=== PATIENT | female | born 1975 | race Caucasian/White ===

== ENCOUNTER 2022-08-14 21:02 | Inpatient (IN) ==
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
[2022-08-14 21:36] LABS: Pregnancy Test, Urine Negative (Negative)
[2022-08-14 21:38] LABS: Appearance Urine Cloudy (Clear); Bacteria Urine Automated Negative (Negative); Bilirubin Urine Negative (Negative); Blood Urine Negative (Negative); Cast Urine Automated 0 /lpf (0-5); Color Urine Yellow; Epithelial Cell Urine Auto >30 /lpf (0-5); Glucose Urine UA Negative (Negative); Ketones Urine Negative (Negative); Leukocyte Esterase Urine Negative (Negative); Nitrite Urine Negative (Negative); Protein Urine Negative (Negative); RBC Urine Automated 0-4 /hpf (0-4); Specific Gravity Urine 1.014 (1.000-1.030); Urobilinogen Urine Negative (Negative)
[2022-08-14 21:45] LABS: Basophils # (auto) 0.07 K/uL (0-0.2); Basophils % (auto) 0.7 %; Eosinophils # (auto) 0.11 K/uL (0-0.50); Hemoglobin 13.8 g/dl (12.0-16.0); Immature Granulocytes # (auto) 0.03 K/uL (0.00-0.02); Immature Granulocytes % (auto) 0.3 %; Lymphocytes # (auto) 2.15 K/uL (1.2-3.4); Lymphocytes % (auto) 20.4 %; Mean Corpuscular Hgb Conc 33.7 g/dL (32.0-36.0); Mean Corpuscular Volume 89.1 fL (80.0-100.0); Mean Platelet Volume 9.2 fL (9.4-12.3); Monocytes # (auto) 0.53 K/uL (0.24-0.82); Neutrophils # (auto) 7.64 K/uL (1.4-6.5); Neutrophils % (auto) 72.6 %; Platelet Count 342 K/uL (130-400); RDW Coefficient of Variation 13.9 % (11.5-14.5); RDW Standard Deviation 45.7 fL (36.4-46.3); White Blood Count 10.53 K/ul (4.8-10.8)
[2022-08-14 22:06] LABS: Albumin Globulin Ratio 1.5 (0.9-2); Albumin Level 4.3 gm/dl (3.4-5.0); BUN Creatinine Ratio 15.7 (10-20); Bilirubin,Total 0.5 mg/dl (0.2-1.0); Calcium 9.3 mg/dl (8.5-10.1); Creatinine Clr Calc Pharmacy 111.9 ml/min; Est GFR (Non-African American) 84.6 ml/min; Globulin 2.9 gm/dl (2.5-4.0); Potassium 4.1 mmol/L (3.5-5.1); Total Protein 7.2 gm/dl (6.0-8.3)
[2022-08-14 22:08] LABS: Acetaminophen < 3 ug/ml (10-30); Salicylate < 3.0 mg/dl (3.0-30)
[2022-08-14 22:15] LABS: Amphetamines+Metham, Urine Neg (Neg); Barbiturates, Urine Neg (Neg); Benzodiazepine, Urine Neg (Neg); Cocaine, Urine Neg (Neg); MDMA (Ecstacy), Urine Pos (Neg); Methadone, Urine Neg (Neg); Opiate, Urine Neg (Neg); Phencyclidine, Urine Neg (Neg)
[2022-08-14] MEDS ORDERED: ACETAMINOPHEN 500 MG TAB PO STA (22:31)
[2022-08-14] MEDS ORDERED: MELOXICAM 7.5 MG TAB PO SCH (22:45)
[2022-08-14] MEDS ORDERED: clonazePAM 0.25 MG TAB PO SCH (22:45)
--- NOTE | 2022-08-15 03:03 | Emergency Department Note ---
ED Visit Note All forms have been signed at 3:02 AM, the patient was accepted to [facility] for psychiatric intervention. There have been no issues during the shift production supervisor observation. .
[2022-08-15] MEDS ORDERED: MAGNESIUM HYDROXIDE SUSP 30 ML UDC PO PRN (03:49)
[2022-08-15] MEDS ORDERED: ALUMINUM/MAGNESIUM SUSP 30 ML UDC PO PRN (03:49)
[2022-08-15] MEDS ORDERED: SODIUM CHLORIDE 0.65% NA SOLN 45 ML (OCEAN) PRN (03:49)
[2022-08-15] MEDS ORDERED: BISMUTH SUBSALICYLATE LIQD 236 ML PO PRN (03:49)
[2022-08-15] MEDS ORDERED: hydrOXYzine HCl 25 MG TAB PO PRN ×3 (03:49→11:59)
[2022-08-15] MEDS ORDERED: FLUARIX QUADRIVALENT 0.5 ML SYR IM ONE (03:56)
[2022-08-15] MEDS ORDERED: CYCLOBENZAPRINE HCL 10 MG TAB PO SCH (09:00)
[2022-08-15] MEDS ORDERED: VENLAFAXINE HCL XR 150 MG CAPXR PO SCH (09:00)
[2022-08-15] MEDS ORDERED: ARIPiprazole 10 MG TAB PO SCH (09:00)
[2022-08-15] MEDS ORDERED: GABAPENTIN 400 MG CAP PO SCH (09:00)
[2022-08-15] MEDS ORDERED: BUDESONIDE/FORMOTEROL FUMARATE 80/4.5 60 PUFFS/INHALER INH SCH (09:00)
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
[2022-08-15] MEDS ORDERED: DICYCLOMINE HCL 10 MG CAP PO PRN (11:59)
[2022-08-15] MEDS ORDERED: ESTRADIOL 0.05 MG/24HRS TDSY TD SCH (12:00)
[2022-08-15] MEDS: MELOXICAM 7.5 MG TAB PO SCH ×2 (13:09→20:47)
[2022-08-15] MEDS: VENLAFAXINE HCL XR 75 MG CAPXR PO SCH (13:10)
[2022-08-15] MEDS: CYCLOBENZAPRINE HCL 10 MG TAB PO SCH ×2 (13:11→20:47)
[2022-08-15] MEDS: GABAPENTIN 600 MG TAB PO SCH ×2 (13:11→20:47)
[2022-08-15] MEDS: PANTOprazole 40 MG TAB PO SCH (13:12)
[2022-08-15] MEDS: FLUTICASONE/VILANTEROL 100/25MCG 14 PUFFS/INHALER INH SCH ×2 (13:12→20:47)
[2022-08-15] MEDS: PREGABALIN 50 MG CAP PO SCH ×2 (13:15→20:47)
[2022-08-15] MEDS: cloNIDine HCL 0.1 MG TAB PO SCH (20:47)
[2022-08-15] MEDS ORDERED: MONTELUKAST SODIUM 10 MG TABLET PO SCH (21:00)
[2022-08-15] MEDS ORDERED: CLONIDINE HCL 0.2 MG PO SCH (21:00)
[2022-08-16] MEDS: ACETAMINOPHEN 325 MG TAB PO PRN ×2 (04:42→17:54)
[2022-08-16] MEDS: ARIPiprazole 10 MG TAB PO SCH (08:58)
[2022-08-16] MEDS: VENLAFAXINE HCL XR 75 MG CAPXR PO SCH (09:03)
[2022-08-16] MEDS: CYCLOBENZAPRINE HCL 10 MG TAB PO SCH ×3 (09:03→21:28)
[2022-08-16] MEDS: FLUoxetine HCL 10 MG CAP PO SCH (09:04)
[2022-08-16] MEDS: GABAPENTIN 600 MG TAB PO SCH ×2 (09:04→21:27)
[2022-08-16] MEDS: FLUTICASONE/VILANTEROL 100/25MCG 14 PUFFS/INHALER INH SCH ×2 (09:04→21:29)
[2022-08-16] MEDS: MELOXICAM 7.5 MG TAB PO SCH ×2 (09:05→21:28)
[2022-08-16] MEDS: PREGABALIN 50 MG CAP PO SCH ×3 (09:05→21:27)
[2022-08-16] MEDS: PANTOprazole 40 MG TAB PO SCH (09:05)
--- NOTE | 2022-08-16 09:20 | Psychiatric Progress Note ---
Date of Service August 16, 2022 Impression / Recommendations Impression The patient is a 46 year old with a history of depression and PTSD who was admitted for interrupted suicide attempt and worsening depression with ongoing SI. Diagnostically consistent with major depressive disorder with anxious distress and complex PTSD. Auditory hallucinations seem to be driven by PTSD especially as these are chronic and unchanged even with recent worsening of depression but MDD with psychotic features remains on differential. The patient is deemed unstable and requires psychiatric hospitalization for diagnostic clarification, safety and stabilization, medication management and development of further coping skills. MNPR given sleep disruption and difficulty tolerating peers given level of depression 08/16/22: Still with severe depression and SI. Reviewed fasting glucose and lipid panel. Glucose and triglycerides elevated. Prefers to trial consolidation of gabapentin dose at qhs to further help with significant insomnia. Continue with effexor to fluoxetine cross-taper. (1) Recurrent severe major depressive disorder with anxiety: (2) Depression with suicidal ideation: (3) Post traumatic stress disorder (PTSD): (4) Auditory hallucinations: (5) Osteoarthritis: (6) Fibromyalgia: Plan 08/16/22: Consolidate gabapentin to 300mg 0800 and 1400 and 900mg qhs. Reduce Effexor XR to 150mg qd. Continue with fluoxetine 10mg qd. 08/15/22: The patient was admitted to the [facility] ([facility] unit) on q15 min checks (behavioral with suicide precautions) for safety. The patient will participate in group, recreational, and milieu therapies and will be offered additional individual and family sessions as clinically appropriate. -Continue prior to admission trazodone 75mg qhs, clonidine 0.4mg qhs, abilify 10mg qd -increase gabapentin to 600mg TID -Discontinue scheduled Klonopin, switch to 0.25mg daily prn for panic attacks given only has been taking for last two days so not at risk for withdrawal -Cross-taper effexor to fluoxetine, decrease Effexor to 225mg qd and start fluoxetine 10mg qd Inventory Assets Strengths: supportive relationships, willing to get treatment, trauma survivor/resilient Needs: safety and stabilization, medication adjustment, additional coping skills, increased outpatient services Suicide Risk Level Suicide Risk Level: High-Moderate (q15 min suicide checks) (High-Moderate due to severe depression with SI with plan prior to admission but feels safe in the hospital, able to safety contract and agrees to let nursing/staff know should they develop plan, intent or feel unable to remain safe. ) Suicide Risk Level Comments: Risk Factors Assessment : Yes Do You Have Access To A Gun?: No (guns locked and she doesn't have access to the holman) Health Problems: Yes Mental Health Diagnoses: Yes Previous Attempt: Yes Previous Psychiatric Hospitalization: Yes Protective Factors Assessment : Yes Responsible for Young Children: Yes Employed: No Stable Relationships: Yes Supportive Family: Yes Good Rapport with Provider: Yes Interval History Identifying Information SAI DEVLIN is a 46-year-old F who currently lives in [place] with her , 2 adult daughters, son-in-law, step-daughter, granddaughter and grandson, has a history of depression with psychosis and PTSD and osteoarthritis of the back/fibromyalgia, and was admitted on 08/15/22 02:37 on a 201 voluntary commitment for depression and SI with plan of cutting herself or overdosing on medication. Chief Complaint "I'm having a hard time". Review of Systems Sleep Information Total Hours of Sleep: 6.5 Sleep Comments: woke late Meal Information Percent Meal Consumed - Breakfast: 25 Percent Meal Consumed - Lunch: 100 Percent Meal Consumed - Dinner: 25 Subjective Subjective Patient was seen & assessed and interval progress reviewed with treatment team nursing and social work. Having a lot of suicidal thoughts yesterday stating near constant thoughts but was able to contract for safety. Was able to shower yesterday evening. Very hopeless. Today tearful and sad in describing that CYS visited her home and that her daughter Nallely is considering pressing legal charges against her daughter [place]. She struggled to sleep last night, didn't realize she could request her trazodone. Her will bring in her estrogen patch as dose in the hospital is double her home dose and patch cannot be cut per pharmacist. No side effects from start of fluoxetine or Effexor taper. Did feel more tired today and wonders if it could be from higher dose of gabapentin, likes idea of consolidating more of dose at bedtime. Physical Exam Psychiatric Orientation: alert and oriented x 3 Apperance: appropriately dressed and appropriately groomed Eye Contact: good eye contact Motor Behavior: no abnormal motor movements Speech: normal rate/rhythm/volume of speech Affect: + depressed affect and + tearful affect Mood: + depressed mood and + anxious mood Thought Process: goal directed thought process Thought Content: reality based without delusions Suicidal Thoughts: denies suicidal plan (none for here in the hospital) and denies suicidal intent; + reports suicidal thoughts Homicidal Thoughts: denies homicidal thoughts Hallucinations: + auditory hallucinations (intermittent AH ); no visual hallucinations Cognition: recent memory grossly intact, remote memory grossly intact, attention grossly intact and language grossly intact Estimated Intelligence: consistent with education level Insight: + limited insight Judgement: + limited judgement Vital Signs (Past 24 Hours) Last Vital Signs Temp 36.6 C 08/16/22 04:48 Pulse 109 H 08/16/22 04:48 Resp 18 08/16/22 04:48 BP 126/87 08/16/22 04:48 Pulse Ox 95 08/15/22 03:05 O2 Del Method 08/15/22 03:05 Results & Data ([facility]) Laboratory Results Laboratory Results - last 24 hr 08/16/22 07:15 Fasting Glucose 107 H Triglycerides 184 H Cholesterol 185 LDL Cholesterol, Calc 111 VLDL Cholesterol, Calc 37 H HDL Cholesterol 37 Cholesterol/HDL Ratio 5.0 Current Inpatient Medications Current Inpatient Medications: Current Inpatient Medications Acetaminophen (Acetaminophen 325 Mg Tab) 650 mg PO Q4H PRN PRN Reason: Headache or Minor Fever Stop: 09/14/22 03:48 Last Admin: 08/16/22 04:42 Dose: 650 mg Aripiprazole (Aripiprazole 10 Mg Tab) 10 mg PO QAM [facility] Stop: 09/15/22 08:59 Last Admin: 08/16/22 08:58 Dose: 10 mg Clonazepam (Clonazepam 0.25 Mg Tab) 0.25 mg PO DAILY PRN PRN Reason: panic attack Stop: 09/14/22 12:23 Clonidine HCl (Clonidine Hcl 0.1 Mg Tab) 0.4 mg PO HS [facility] Stop: 09/14/22 21:59 Last Admin: 08/15/22 20:47 Dose: 0.4 mg Cyclobenzaprine HCl (Cyclobenzaprine Hcl 10 Mg Tab) 10 mg PO TID [facility] Stop: 09/14/22 13:59 Last Admin: 08/16/22 09:03 Dose: 10 mg Dicyclomine HCl (Dicyclomine Hcl 10 Mg Cap) 10 mg PO TID PRN PRN Reason: abdominal discomfort Stop: 09/14/22 11:58 Estradiol (Estradiol 0.05 Mg/24hrs Tdsy) 0.025 mg TD TuFr@1200 [facility] Stop: 09/14/22 11:59 Fluoxetine HCl (Fluoxetine Hcl 10 Mg Cap) 10 mg PO QAM [facility] Stop: 09/15/22 08:59 Last Admin: 08/16/22 09:04 Dose: 10 mg Fluticasone/Vilanterol (Fluticasone/Vilanterol 100/25mcg 14 Puffs/Inhaler) 2 puffs INH BID [facility] Stop: 09/14/22 12:29 Last Admin: 08/16/22 09:04 Dose: 2 puffs Gabapentin (Gabapentin 600 Mg Tab) 600 mg PO TID [facility] Stop: 09/14/22 13:59 Last Admin: 08/16/22 09:04 Dose: 600 mg Hydroxyzine HCl (Hydroxyzine Hcl 25 Mg Tab) 50 mg PO TID PRN PRN Reason: as needed Stop: 09/14/22 11:58 Meloxicam (Meloxicam 7.5 Mg Tab) 7.5 mg PO BID [facility] Stop: 09/14/22 12:29 Last Admin: 08/16/22 09:05 Dose: 7.5 mg Pantoprazole Sodium (Pantoprazole 40 Mg Tab) 40 mg PO QAM [facility] Stop: 09/14/22 12:29 Last Admin: 08/16/22 09:05 Dose: 40 mg Pregabalin (Pregabalin 50 Mg Cap) 50 mg PO TID [facility] Stop: 09/14/22 13:59 Last Admin: 08/16/22 09:05 Dose: 50 mg Sodium Chloride (Sodium Chloride 0.65% Na Soln 45 Ml ([place])) 1 - 2 sprays NA PRN PRN PRN Reason: Nasal Dryness/Congestion Stop: 09/14/22 03:48 Trazodone HCl (Trazodone Hcl 50 Mg Tab) 75 mg PO HS PRN PRN Reason: Insomnia Stop: 09/14/22 11:58 Venlafaxine HCl (Venlafaxine Hcl Xr 75 Mg Capxr) 225 mg PO QAM [facility] Stop: 09/14/22 12:29 Last Admin: 08/16/22 09:03 Dose: 225 mg Mental Health & Subst Abuse Tx Therapist Name of Therapist: Maria Elena Pleitez [facility] jessica [facility] Damage Adjuster Name of Damage Adjuster: Gabriela Clinton [facility]
[2022-08-16] MEDS: GABAPENTIN 300 MG CAP PO SCH (15:48)
[2022-08-16] MEDS: clonazePAM 0.25 MG TAB PO PRN (21:27)
[2022-08-16] MEDS: cloNIDine HCL 0.1 MG TAB PO SCH (21:28)
[2022-08-16] MEDS: traZODone HCL 50 MG TAB PO PRN (21:28)
[2022-08-17] MEDS ORDERED: GABAPENTIN 300 MG CAP PO SCH (07:00)
[2022-08-17] MEDS: FLUTICASONE/VILANTEROL 100/25MCG 14 PUFFS/INHALER INH SCH ×2 (08:44→20:06)
[2022-08-17] MEDS: CYCLOBENZAPRINE HCL 10 MG TAB PO SCH ×3 (08:44→20:06)
[2022-08-17] MEDS: GABAPENTIN 300 MG CAP PO SCH ×2 (08:44→13:27)
[2022-08-17] MEDS: FLUoxetine HCL 10 MG CAP PO SCH (08:44)
[2022-08-17] MEDS: ARIPiprazole 10 MG TAB PO SCH (08:44)
[2022-08-17] MEDS: MELOXICAM 7.5 MG TAB PO SCH ×2 (08:45→20:07)
[2022-08-17] MEDS: PREGABALIN 50 MG CAP PO SCH ×3 (08:45→20:07)
[2022-08-17] MEDS: PANTOprazole 40 MG TAB PO SCH (08:45)
[2022-08-17] MEDS ORDERED: VENLAFAXINE HCL XR 150 MG CAPXR PO SCH (09:00)
--- NOTE | 2022-08-17 09:05 | Psychiatric Progress Note ---
Date of Service August 17, 2022 Impression / Recommendations Impression The patient is a 46 year old with a history of depression and PTSD who was admitted for interrupted suicide attempt and worsening depression with ongoing SI. Diagnostically consistent with major depressive disorder with anxious distress and complex PTSD. Auditory hallucinations seem to be driven by PTSD especially as these are chronic and unchanged even with recent worsening of depression but MDD with psychotic features remains on differential. The patient is deemed unstable and requires psychiatric hospitalization for diagnostic clarification, safety and stabilization, medication management and development of further coping skills. MNPR given sleep disruption and difficulty tolerating peers given level of depression 08/17/22: Remains very depressed and with ongoing SI. Tolerating cross-taper without side effects will continue with increasing fluoxetine. Fell asleep more easily with higher gabapentin dose at bedtime. Wonder about BIB contributing to depression tx resistance and awakenings at night given hx snoring. (1) Recurrent severe major depressive disorder with anxiety: (2) Depression with suicidal ideation: (3) Post traumatic stress disorder (PTSD): (4) Auditory hallucinations: (5) Osteoarthritis: (6) Fibromyalgia: Plan 08/17/22: Increase fluoxetine to 20mg qd. Decrease to Effexor XR 75mg qd. 08/16/22: Consolidate gabapentin to 300mg 0800 and 1400 and 900mg qhs. Reduce Effexor XR to 150mg qd. Continue with fluoxetine 10mg qd. 08/15/22: The patient was admitted to the [facility] ([facility] mental health unit) on q15 min checks (behavioral with suicide precautions) for safety. The patient will participate in group, recreational, and milieu therapies and will be offered additional individual and family sessions as clinically appropriate. -Continue prior to admission trazodone 75mg qhs, clonidine 0.4mg qhs, abilify 10mg qd -increase gabapentin to 600mg TID -Discontinue scheduled Klonopin, switch to 0.25mg daily prn for panic attacks given only has been taking for last two days so not at risk for withdrawal -Cross-taper effexor to fluoxetine, decrease Effexor to 225mg qd and start fluoxetine 10mg qd Inventory Assets Strengths: supportive relationships, willing to get treatment, trauma survivor/resilient Needs: safety and stabilization, medication adjustment, additional coping skills, increased outpatient services Suicide Risk Level Suicide Risk Level: High-Moderate (q15 min suicide checks) (High-Moderate due to severe depression with SI with plan prior to admission but feels safe in the hospital, able to safety contract and agrees to let nursing/staff know should they develop plan, intent or feel unable to remain safe. ) Suicide Risk Level Comments: Risk Factors Assessment : Yes Do You Have Access To A Gun?: No (guns locked and she doesn't have access to the holman) Health Problems: Yes Mental Health Diagnoses: Yes Previous Attempt: Yes Previous Psychiatric Hospitalization: Yes Protective Factors Assessment : Yes Responsible for Young Children: Yes Employed: No Stable Relationships: Yes Supportive Family: Yes Good Rapport with Provider: Yes Interval History Identifying Information SAI DEVLIN is a 46-year-old F who currently lives in [place] with her , 2 adult daughters, son-in-law, step-daughter, granddaughter and grandson, has a history of depression with psychosis and PTSD and osteoarthritis of the back/fibromyalgia, and was admitted on 08/15/22 02:37 on a 201 voluntary commitment for depression and SI with plan of cutting herself or overdosing on medication. Chief Complaint "When will I start to see the light at the end of the tunnel". Review of Systems Sleep Information Total Hours of Sleep: 6.5 Sleep Comments: woke late Meal Information Percent Meal Consumed - Breakfast: 100 Percent Meal Consumed - Lunch: 100 Percent Meal Consumed - Dinner: 100 Subjective Subjective Patient was seen & assessed and interval progress reviewed with treatment team nursing and social work. Still very anxious and depressed with SI. Feels her mood and intensity of SI are "about the same". Tearful in discussing her hopelessness about what if her depression doesn't improve. Remains overwhelmed by family dynamics that lead to her hospital. Still thinking about plan to overdose on pills if she left the hospital, feels safe here. Still having lots of awakenings at night while sleeping, reviewed possibility of BIB component given that she snores. Agrees to do [place] Sleepiness questionnaire. Physical Exam Psychiatric Orientation: alert and oriented x 3 Apperance: appropriately dressed and appropriately groomed Eye Contact: good eye contact Motor Behavior: no abnormal motor movements Speech: normal rate/rhythm/volume of speech Affect: + depressed affect and + tearful affect Mood: + depressed mood and + anxious mood Thought Process: goal directed thought process Thought Content: reality based without delusions Suicidal Thoughts: denies suicidal intent; + reports suicidal thoughts and + reports suicidal plan (none for here in the hospital but overdose on pills if at home) Homicidal Thoughts: denies homicidal thoughts Hallucinations: + auditory hallucinations (intermittent AH ); no visual hallucinations Cognition: recent memory grossly intact, remote memory grossly intact, attention grossly intact and language grossly intact Estimated Intelligence: consistent with education level Insight: + limited insight Judgement: + limited judgement Vital Signs (Past 24 Hours) Last Vital Signs Temp 36.9 C 08/17/22 06:47 Pulse 80 08/17/22 06:48 Resp 16 08/17/22 06:47 BP 113/61 08/17/22 06:48 Pulse Ox 95 08/15/22 03:05 O2 Del Method 08/15/22 03:05 Results & Data ([facility]) Current Inpatient Medications Current Inpatient Medications: Current Inpatient Medications Acetaminophen (Acetaminophen 325 Mg Tab) 650 mg PO Q4H PRN PRN Reason: Headache or Minor Fever Stop: 09/14/22 03:48 Last Admin: 08/16/22 17:54 Dose: 650 mg Aripiprazole (Aripiprazole 10 Mg Tab) 10 mg PO QAM [facility] Stop: 09/15/22 08:59 Last Admin: 08/17/22 08:44 Dose: 10 mg Clonazepam (Clonazepam 0.25 Mg Tab) 0.25 mg PO DAILY PRN PRN Reason: panic attack Stop: 09/14/22 12:23 Last Admin: 08/16/22 21:27 Dose: 0.25 mg Clonidine HCl (Clonidine Hcl 0.1 Mg Tab) 0.4 mg PO HS [facility] Stop: 09/14/22 21:59 Last Admin: 08/16/22 21:28 Dose: 0.4 mg Cyclobenzaprine HCl (Cyclobenzaprine Hcl 10 Mg Tab) 10 mg PO TID [facility] Stop: 09/14/22 13:59 Last Admin: 08/17/22 08:44 Dose: 10 mg Dicyclomine HCl (Dicyclomine Hcl 10 Mg Cap) 10 mg PO TID PRN PRN Reason: abdominal discomfort Stop: 09/14/22 11:58 Estradiol (Estradiol 0.05 Mg/24hrs Tdsy) 0.025 mg TD TuFr@1200 [facility] Stop: 09/14/22 11:59 Fluoxetine HCl (Fluoxetine Hcl 10 Mg Cap) 10 mg PO QAM [facility] Stop: 09/15/22 08:59 Last Admin: 08/17/22 08:44 Dose: 10 mg Fluticasone/Vilanterol (Fluticasone/Vilanterol 100/25mcg 14 Puffs/Inhaler) 2 puffs INH BID [facility] Stop: 09/14/22 12:29 Last Admin: 08/17/22 08:44 Dose: 2 puffs Gabapentin (Gabapentin 600 Mg Tab) 900 mg PO HS [facility] Stop: 09/15/22 21:59 Last Admin: 08/16/22 21:27 Dose: 900 mg Gabapentin (Gabapentin 300 Mg Cap) 300 mg PO BID@0800,1400 [facility] Stop: 09/15/22 15:14 Last Admin: 08/17/22 08:44 Dose: 300 mg Hydroxyzine HCl (Hydroxyzine Hcl 25 Mg Tab) 50 mg PO TID PRN PRN Reason: as needed Stop: 09/14/22 11:58 Meloxicam (Meloxicam 7.5 Mg Tab) 7.5 mg PO BID [facility] Stop: 09/14/22 12:29 Last Admin: 08/17/22 08:45 Dose: 7.5 mg Pantoprazole Sodium (Pantoprazole 40 Mg Tab) 40 mg PO QAM [facility] Stop: 09/14/22 12:29 Last Admin: 08/17/22 08:45 Dose: 40 mg Pregabalin (Pregabalin 50 Mg Cap) 50 mg PO TID [facility] Stop: 09/14/22 13:59 Last Admin: 08/17/22 08:45 Dose: 50 mg Sodium Chloride (Sodium Chloride 0.65% Na Soln 45 Ml ([place])) 1 - 2 sprays NA PRN PRN PRN Reason: Nasal Dryness/Congestion Stop: 09/14/22 03:48 Trazodone HCl (Trazodone Hcl 50 Mg Tab) 75 mg PO HS PRN PRN Reason: Insomnia Stop: 09/14/22 11:58 Last Admin: 08/16/22 21:28 Dose: 75 mg Venlafaxine HCl (Venlafaxine Hcl Xr 150 Mg Capxr) 150 mg PO QAM [facility] Stop: 09/16/22 08:59 Last Admin: 08/17/22 08:46 Dose: 150 mg Mental Health & Subst Abuse Tx Psychiatrist Name of Psychiatrist[place] [facility] [place] [place] [facility] Date of Appointment with Psychiatrist: 08/25/22 Time of Appointment with Psychiatrist: 4:010 PM Psychiatric Appointment Comment: [address] [place] [id number] Therapist Name of Therapist: [facility] [place] Therapist's Date of Therapist Appointment: 08/26/22 Time of Therapist Appointment: 10:00 AM Therapy Appointment Comment: [place] [id number] Door Furring Installer Name of Door Furring Installer: [facility] Phone Number for Door Furring Installer: [phone] Date of Appointment with Door Furring Installer: 08/25/22 Time of Appointment with Door Furring Installer: 9:30 AM Case Management Appointment Comment: [place] [phone]
[2022-08-17] MEDS: clonazePAM 0.25 MG TAB PO PRN (15:29)
[2022-08-17] MEDS: GABAPENTIN 600 MG TAB PO SCH ×2 (15:34→20:09)
[2022-08-17] MEDS: cloNIDine HCL 0.1 MG TAB PO SCH (20:08)
[2022-08-17] MEDS: traZODone HCL 50 MG TAB PO PRN (20:12)
[2022-08-18] MEDS: GABAPENTIN 300 MG CAP PO SCH ×2 (08:14→14:02)
[2022-08-18] MEDS: CYCLOBENZAPRINE HCL 10 MG TAB PO SCH ×3 (08:15→21:19)
[2022-08-18] MEDS: FLUoxetine HCL 20 MG CAP PO SCH (08:15)
[2022-08-18] MEDS: ARIPiprazole 10 MG TAB PO SCH (08:15)
[2022-08-18] MEDS: FLUTICASONE/VILANTEROL 100/25MCG 14 PUFFS/INHALER INH SCH ×2 (08:16→21:18)
[2022-08-18] MEDS: PANTOprazole 40 MG TAB PO SCH (08:16)
[2022-08-18] MEDS: MELOXICAM 7.5 MG TAB PO SCH ×2 (08:16→21:19)
[2022-08-18] MEDS: PREGABALIN 50 MG CAP PO SCH ×3 (08:19→21:19)
[2022-08-18] MEDS ORDERED: VENLAFAXINE HCL XR 75 MG CAPXR PO SCH (09:00)
[2022-08-18] MEDS: ACETAMINOPHEN 325 MG TAB PO PRN (09:03)
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
[2022-08-18] MEDS: traZODone HCL 50 MG TAB PO PRN (21:19)
[2022-08-18] MEDS: GABAPENTIN 600 MG TAB PO SCH (21:21)
[2022-08-18] MEDS: cloNIDine HCL 0.1 MG TAB PO SCH (21:21)
[2022-08-19] MEDS: FLUoxetine HCL 20 MG CAP PO SCH (07:45)
[2022-08-19] MEDS: ARIPiprazole 10 MG TAB PO SCH (07:45)
[2022-08-19] MEDS: CYCLOBENZAPRINE HCL 10 MG TAB PO SCH ×3 (07:45→21:17)
[2022-08-19] MEDS: GABAPENTIN 300 MG CAP PO SCH ×2 (07:45→13:18)
[2022-08-19] MEDS: PANTOprazole 40 MG TAB PO SCH (07:45)
[2022-08-19] MEDS: MELOXICAM 7.5 MG TAB PO SCH ×2 (07:45→21:19)
[2022-08-19] MEDS: FLUTICASONE/VILANTEROL 100/25MCG 14 PUFFS/INHALER INH SCH ×2 (07:46→21:21)
[2022-08-19] MEDS: PREGABALIN 50 MG CAP PO SCH ×3 (07:49→21:23)
[2022-08-19] MEDS ORDERED: VENLAFAXINE HCL XR 37.5 MG CAPXR PO SCH (09:00)
--- NOTE | 2022-08-19 16:42 | Psychiatric Progress Note ---
Date of Service August 19, 2022 Impression / Recommendations Impression The patient is a 46 year old with a history of depression and PTSD who was admitted for interrupted suicide attempt and worsening depression with ongoing SI. Diagnostically consistent with major depressive disorder with anxious distress and complex PTSD. Auditory hallucinations seem to be driven by PTSD especially as these are chronic and unchanged even with recent worsening of depression but MDD with psychotic features remains on differential. The patient is deemed unstable and requires psychiatric hospitalization for diagnostic clarification, safety and stabilization, medication management and development of further coping skills. MNPR given sleep disruption and difficulty tolerating peers given level of depression 08/19/22: Remains very depressed, anxious and with ongoing SI and PTSD symptoms. May be a bit of a dependency PD component. Consents to ongoing cross-taper. (1) Recurrent severe major depressive disorder with anxiety: (2) Depression with suicidal ideation: (3) Post traumatic stress disorder (PTSD): (4) Auditory hallucinations: (5) Osteoarthritis: (6) Fibromyalgia: (7) Snoring: Recommend outpatient sleep study/BIB workup as likely contributing to insomnia and may be contributing to depression. Plan 08/19/22: Increase fluoxetine to 40mg qd. Stop Effexor XR. 08/18/22: Decrease Effexor XR to 37.5mg qd. 08/17/22: Increase fluoxetine to 20mg qd. Decrease to Effexor XR 75mg qd. 08/16/22: Consolidate gabapentin to 300mg 0800 and 1400 and 900mg qhs. Reduce Effexor XR to 150mg qd. Continue with fluoxetine 10mg qd. 08/15/22: The patient was admitted to the [facility] ([facility] mental [facility] unit) on q15 min checks (behavioral with suicide precautions) for safety. The patient will participate in group, recreational, and milieu therapies and will be offered additional individual and family sessions as clinically appropriate. -Continue prior to admission trazodone 75mg qhs, clonidine 0.4mg qhs, abilify 10mg qd -increase gabapentin to 600mg TID -Discontinue scheduled Klonopin, switch to 0.25mg daily prn for panic attacks given only has been taking for last two days so not at risk for withdrawal -Cross-taper effexor to fluoxetine, decrease Effexor to 225mg qd and start fluoxetine 10mg qd Inventory Assets Strengths: supportive relationships, willing to get treatment, trauma survivor/resilient Needs: safety and stabilization, medication adjustment, additional coping skills, increased outpatient services Suicide Risk Level Suicide Risk Level: High-Moderate (q15 min suicide checks) (High-Moderate due to severe depression with SI with plan prior to admission but feels safe in the hospital, able to safety contract and agrees to let nursing/staff know should they develop plan, intent or feel unable to remain safe. ) Suicide Risk Level Comments: Risk Factors Assessment : Yes Do You Have Access To A Gun?: No (guns locked and she doesn't have access to the holman) Health Problems: Yes Mental Health Diagnoses: Yes Previous Attempt: Yes Previous Psychiatric Hospitalization: Yes Protective Factors Assessment : Yes Responsible for Young Children: Yes Employed: No Stable Relationships: Yes Supportive Family: Yes Good Rapport with Provider: Yes Interval History Identifying Information SAI DEVLIN is a 46-year-old F who currently lives in [place] with her , 2 adult daughters, son-in-law, step-daughter, granddaughter and grandson, has a history of depression with psychosis and PTSD and osteoarthritis of the back/fibromyalgia, and was admitted on 08/15/22 02:37 on a 201 voluntary commitment for depression and SI with plan of cutting herself or overdosing on medication. Chief Complaint "I'm feeling sad". Review of Systems Sleep Information Total Hours of Sleep: 6.75 Sleep Comments: woke late Meal Information Percent Meal Consumed - Breakfast: 90 Percent Meal Consumed - Lunch: 100 Percent Meal Consumed - Dinner: 100 Subjective Subjective Patient was seen & assessed and interval progress reviewed with treatment team nursing and social work. Brightens at times with peers but when not distracted becomes very depressed and sad. Eating well, though reported limited intake to RN last night which was at odd's with consumption noted from her tray. Slept very poorly. No side effects from medication cross-taper. Tolerated family meeting but reported increase in depression and SI after this noting "I don't know why, it went well". Reviewed ACT strategies and sitting with emotions and using mindfulness which she was receptive to. Physical Exam Psychiatric Orientation: alert and oriented x 3 Apperance: appropriately dressed and appropriately groomed Eye Contact: good eye contact Motor Behavior: no abnormal motor movements Speech: normal rate/rhythm/volume of speech Affect: + depressed affect, + anxious affect and + tearful affect Mood: + depressed mood and + anxious mood Thought Process: goal directed thought process Thought Content: reality based without delusions Suicidal Thoughts: denies suicidal intent; + reports suicidal thoughts and + reports suicidal plan (denies for in the hospital but overdose on pills if at home or strangle ) Homicidal Thoughts: denies homicidal thoughts Hallucinations: + auditory hallucinations (intermittent AH, no command); no visual hallucinations Cognition: recent memory grossly intact, remote memory grossly intact, attention grossly intact and language grossly intact Estimated Intelligence: consistent with education level Insight: + limited insight Judgement: + limited judgement Vital Signs (Past 24 Hours) Last Vital Signs Temp 36.4 C 08/19/22 06:00 Pulse 76 08/19/22 06:00 Resp 18 08/19/22 06:00 BP 106/73 08/19/22 06:34 Pulse Ox 95 08/15/22 03:05 O2 Del Method 08/15/22 03:05 Results & Data ([facility]) Current Inpatient Medications Current Inpatient Medications: Current Inpatient Medications Acetaminophen (Acetaminophen 325 Mg Tab) 650 mg PO Q4H PRN PRN Reason: Headache or Minor Fever Stop: 09/14/22 03:48 Last Admin: 08/18/22 09:03 Dose: 650 mg Aripiprazole (Aripiprazole 10 Mg Tab) 10 mg PO QAM [facility] Stop: 09/15/22 08:59 Last Admin: 08/19/22 07:45 Dose: 10 mg Clonazepam (Clonazepam 0.25 Mg Tab) 0.25 mg PO DAILY PRN PRN Reason: panic attack Stop: 09/14/22 12:23 Last Admin: 08/17/22 15:29 Dose: 0.25 mg Clonidine HCl (Clonidine Hcl 0.1 Mg Tab) 0.4 mg PO HS [facility] Stop: 09/14/22 21:59 Last Admin: 08/18/22 21:21 Dose: 0.4 mg Cyclobenzaprine HCl (Cyclobenzaprine Hcl 10 Mg Tab) 10 mg PO TID [facility] Stop: 09/14/22 13:59 Last Admin: 08/19/22 13:18 Dose: 10 mg Dicyclomine HCl (Dicyclomine Hcl 10 Mg Cap) 10 mg PO TID PRN PRN Reason: abdominal discomfort Stop: 09/14/22 11:58 Estradiol (Estradiol 0.05 Mg/24hrs Tdsy) 0.025 mg TD TuFr@1200 [facility] Stop: 09/14/22 11:59 Fluoxetine HCl (Fluoxetine Hcl 20 Mg Cap) 20 mg PO QAM [facility] Stop: 09/17/22 08:59 Last Admin: 08/19/22 07:45 Dose: 20 mg Fluticasone/Vilanterol (Fluticasone/Vilanterol 100/25mcg 14 Puffs/Inhaler) 2 puffs INH BID [facility] Stop: 09/14/22 12:29 Last Admin: 08/19/22 07:46 Dose: 2 puffs Gabapentin (Gabapentin 600 Mg Tab) 900 mg PO HS [facility] Stop: 09/15/22 21:59 Last Admin: 08/18/22 21:21 Dose: 900 mg Gabapentin (Gabapentin 300 Mg Cap) 300 mg PO BID@0800,1400 [facility] Stop: 09/15/22 15:14 Last Admin: 08/19/22 13:18 Dose: 300 mg Hydroxyzine HCl (Hydroxyzine Hcl 25 Mg Tab) 50 mg PO TID PRN PRN Reason: as needed Stop: 09/14/22 11:58 Meloxicam (Meloxicam 7.5 Mg Tab) 7.5 mg PO BID [facility] Stop: 09/14/22 12:29 Last Admin: 08/19/22 07:45 Dose: 7.5 mg Pantoprazole Sodium (Pantoprazole 40 Mg Tab) 40 mg PO QAM [facility] Stop: 09/14/22 12:29 Last Admin: 08/19/22 07:45 Dose: 40 mg Pregabalin (Pregabalin 50 Mg Cap) 50 mg PO TID [facility] Stop: 09/14/22 13:59 Last Admin: 08/19/22 13:19 Dose: 50 mg Sodium Chloride (Sodium Chloride 0.65% Na Soln 45 Ml ([place])) 1 - 2 sprays NA PRN PRN PRN Reason: Nasal Dryness/Congestion Stop: 09/14/22 03:48 Trazodone HCl (Trazodone Hcl 50 Mg Tab) 75 mg PO HS PRN PRN Reason: Insomnia Stop: 09/14/22 11:58 Last Admin: 08/18/22 21:19 Dose: 75 mg Venlafaxine HCl (Venlafaxine Hcl Xr 37.5 Mg Capxr) 37.5 mg PO QAM [facility] Stop: 09/18/22 08:59 Last Admin: 08/19/22 07:45 Dose: 37.5 mg Mental Health & Subst Abuse Tx Psychiatrist [place] of Psychiat[place] [facility] [place] Psychiatrist's Date of Appointment with Psychiatrist: 08/25/22 Time of Appointment with Psychiatrist: 4:010 PM Psychiatric Appointment Comment: [address] [place] [id number] Therapist Name of Therapist[place] [facility] [place] Therapist's Date of Therapist Appointment: 08/26/22 Time of Therapist Appointment: 10:00 AM Therapy Appointment Comment: [address] [place] [phone] Physicist [place] Name of Phys[place]ist [place] [facility] [place] Phone Number for Physicist [place]: [phone] Date of Appointment with Physicist [place]: 08/25/22 Time of Appointment with Physicist [place]: 9:30 AM Case Management Appointment Comment: [place] [id number]
[2022-08-19] MEDS: GABAPENTIN 600 MG TAB PO SCH (21:18)
[2022-08-19] MEDS: cloNIDine HCL 0.1 MG TAB PO SCH (21:18)
[2022-08-19] MEDS: traZODone HCL 50 MG TAB PO PRN (21:19)
[2022-08-20] MEDS: MELOXICAM 7.5 MG TAB PO SCH ×2 (08:50→21:27)
[2022-08-20] MEDS: CYCLOBENZAPRINE HCL 10 MG TAB PO SCH ×3 (08:50→21:27)
[2022-08-20] MEDS: ARIPiprazole 10 MG TAB PO SCH (08:50)
[2022-08-20] MEDS: PANTOprazole 40 MG TAB PO SCH (08:50)
[2022-08-20] MEDS: PREGABALIN 50 MG CAP PO SCH ×3 (08:50→21:28)
[2022-08-20] MEDS: GABAPENTIN 300 MG CAP PO SCH ×2 (08:50→14:16)
[2022-08-20] MEDS: FLUoxetine HCL 20 MG CAP PO SCH (08:50)
--- NOTE | 2022-08-20 09:15 | Psychiatric Progress Note ---
Date of Service August 20, 2022 Impression / Recommendations Impression The patient is a 46 year old with a history of depression and PTSD who was admitted for interrupted suicide attempt and worsening depression with ongoing SI. Diagnostically consistent with major depressive disorder with anxious distress and complex PTSD. Auditory hallucinations seem to be driven by PTSD especially as these are chronic and unchanged even with recent worsening of depression but MDD with psychotic features remains on differential. The patient is deemed unstable and requires psychiatric hospitalization for diagnostic clarification, safety and stabilization, medication management and development of further coping skills. MNPR given sleep disruption and difficulty tolerating peers given level of depression 08/20/22: Remains depressed but starting to show some signs of lessening a bit with brighter affect at times and increasing insight about ways to move forward from trauma/cope with this. Still with SI. (1) Recurrent severe major depressive disorder with anxiety: (2) Depression with suicidal ideation: (3) Post traumatic stress disorder (PTSD): (4) Auditory hallucinations: (5) Osteoarthritis: (6) Fibromyalgia: (7) Snoring: Recommend outpatient sleep study/BIB workup as likely contributing to insomnia and may be contributing to depression. Plan 08/20/22: Continue with current medictions and tx plan. 08/19/22: Increase fluoxetine to 40mg qd. Stop Effexor XR. 08/18/22: Decrease Effexor XR to 37.5mg qd. 08/17/22: Increase fluoxetine to 20mg qd. Decrease to Effexor XR 75mg qd. 08/16/22: Consolidate gabapentin to 300mg 0800 and 1400 and 900mg qhs. Reduce Effexor XR to 150mg qd. Continue with fluoxetine 10mg qd. 08/15/22: The patient was admitted to the [facility] ([facility] mental health unit) on q15 min checks (behavioral with suicide precautions) for safety. The patient will participate in group, recreational, and milieu therapies and will be offered additional individual and family sessions as clinically appropriate. -Continue prior to admission trazodone 75mg qhs, clonidine 0.4mg qhs, abilify 10mg qd -increase gabapentin to 600mg TID -Discontinue scheduled Klonopin, switch to 0.25mg daily prn for panic attacks given only has been taking for last two days so not at risk for withdrawal -Cross-taper effexor to fluoxetine, decrease Effexor to 225mg qd and start fluoxetine 10mg qd Inventory Assets Strengths: supportive relationships, willing to get treatment, trauma survivor/resilient Needs: safety and stabilization, medication adjustment, additional coping skills, increased outpatient services Suicide Risk Level Suicide Risk Level: Moderate (q15 min suicide checks) (High-Moderate due to severe depression with SI with plan prior to admission but SI lessening, feels s afe in the hospital, able to safety contract and agrees to let nursing/staff know should they develop plan, intent or feel unable to remain safe. ) Suicide Risk Level Comments: Risk Factors Assessment : Yes Do You Have Access To A Gun?: No (guns locked and she doesn't have access to the holman) Health Problems: Yes Mental Health Diagnoses: Yes Previous Attempt: Yes Previous Psychiatric Hospitalization: Yes Protective Factors Assessment : Yes Responsible for Young Children: Yes Employed: No Stable Relationships: Yes Supportive Family: Yes Good Rapport with Provider: Yes Interval History Identifying Information SAI DEVLIN is a 46-year-old F who currently lives in [place] with her , 2 adult daughters, son-in-law, step-daughter, granddaughter and grandson, has a history of depression with psychosis and PTSD and osteoarthritis of the back/fibromyalgia, and was admitted on 08/15/22 02:37 on a 201 voluntary commitment for depression and SI with plan of cutting herself or overdosing on medication. Chief Complaint "I'm ok". Review of Systems Sleep Information Total Hours of Sleep: 8 Sleep Comments: woke late Meal Information Percent Meal Consumed - Breakfast: 90 Percent Meal Consumed - Lunch: 100 Percent Meal Consumed - Dinner: 100 Subjective Subjective Patient was seen & assessed and interval progress reviewed with treatment team nursing and social work. Remains bright with peers when distracted. Today brighter affect with me when describing winning a dice game during activity group. Read a book this morning and felt she resonated with a message about "you can't go backwards and change what happened in the past you need to work on the new you". Discussed how she continues to grief the happy person she was before she experienced trauma and how she feels stuck sometimes and mourning the loss of that part of her self. Reviewed ACT strategies and gratitude practices and strength based approach of recognizing how she's developed resiliency and learned about her self with what she's been through. She feels she's been more distracted today and that helped her SI as "it's been pretty good today". No side effects from stopping Effexor or titration of fluoxetine. Physical Exam Psychiatric Orientation: alert and oriented x 3 Apperance: appropriately dressed and appropriately groomed Eye Contact: good eye contact Motor Behavior: no abnormal motor movements Speech: normal rate/rhythm/volume of speech Affect: + depressed affect and + constricted affect Mood: + depressed mood and + anxious mood Thought Process: goal directed thought process Thought Content: reality based without delusions Suicidal Thoughts: denies suicidal plan and denies suicidal intent; + reports suicidal thoughts Homicidal Thoughts: denies homicidal thoughts Hallucinations: no auditory hallucinations and no visual hallucinations Cognition: recent memory grossly intact, remote memory grossly intact, attention grossly intact and language grossly intact Estimated Intelligence: consistent with education level Insight: + fair insight Judgement: + limited judgement Vital Signs (Past 24 Hours) Last Vital Signs Temp 36.6 C 08/20/22 06:00 Pulse 102 H 08/20/22 07:07 Resp 16 08/20/22 06:00 BP 134/82 08/20/22 07:07 Pulse Ox 95 08/20/22 06:00 O2 Del Method 08/20/22 06:00 Results & Data ([facility]) Current Inpatient Medications Current Inpatient Medications: Current Inpatient Medications Acetaminophen (Acetaminophen 325 Mg Tab) 650 mg PO Q4H PRN PRN Reason: Headache or Minor Fever Stop: 09/14/22 03:48 Last Admin: 08/18/22 09:03 Dose: 650 mg Aripiprazole (Aripiprazole 10 Mg Tab) 10 mg PO QAM [facility] Stop: 09/15/22 08:59 Last Admin: 08/20/22 08:50 Dose: 10 mg Clonazepam (Clonazepam 0.25 Mg Tab) 0.25 mg PO DAILY PRN PRN Reason: panic attack Stop: 09/14/22 12:23 Last Admin: 08/17/22 15:29 Dose: 0.25 mg Clonidine HCl (Clonidine Hcl 0.1 Mg Tab) 0.4 mg PO HS [facility] Stop: 09/14/22 21:59 Last Admin: 08/19/22 21:18 Dose: 0.4 mg Cyclobenzaprine HCl (Cyclobenzaprine Hcl 10 Mg Tab) 10 mg PO TID [facility]AL[facility] Stop: 09/14/22 13:59 Last Admin: 08/20/22 08:50 Dose: 10 mg Dicyclomine HCl (Dicyclomine Hcl 10 Mg Cap) 10 mg PO TID PRN PRN Reason: abdominal discomfort Stop: 09/14/22 11:58 Estradiol (Estradiol 0.05 Mg/24hrs Tdsy) 0.025 mg TD TuFr@1200 [facility] Stop: 09/14/22 11:59 Fluoxetine HCl (Fluoxetine Hcl 20 Mg Cap) 40 mg PO QAM [facility] Stop: 09/19/22 08:59 Last Admin: 08/20/22 08:50 Dose: 40 mg Fluticasone/Vilanterol (Fluticasone/Vilanterol 100/25mcg 14 Puffs/Inhaler) 2 puffs INH BID [facility] Stop: 09/14/22 12:29 Last Admin: 08/19/22 21:21 Dose: 2 puffs Gabapentin (Gabapentin 600 Mg Tab) 900 mg PO HS [facility] Stop: 09/15/22 21:59 Last Admin: 08/19/22 21:18 Dose: 900 mg Gabapentin (Gabapentin 300 Mg Cap) 300 mg PO BID@0800,1400 [facility] Stop: 09/15/22 15:14 Last Admin: 08/20/22 08:50 Dose: 300 mg Hydroxyzine HCl (Hydroxyzine Hcl 25 Mg Tab) 50 mg PO TID PRN PRN Reason: as needed Stop: 09/14/22 11:58 Meloxicam (Meloxicam 7.5 Mg Tab) 7.5 mg PO BID [facility] Stop: 09/14/22 12:29 Last Admin: 08/20/22 08:50 Dose: 7.5 mg Pantoprazole Sodium (Pantoprazole 40 Mg Tab) 40 mg PO QAM [facility] Stop: 09/14/22 12:29 Last Admin: 08/20/22 08:50 Dose: 40 mg Pregabalin (Pregabalin 50 Mg Cap) 50 mg PO TID [facility] Stop: 09/14/22 13:59 Last Admin: 08/20/22 08:50 Dose: 50 mg Sodium Chloride (Sodium Chloride 0.65% Na Soln 45 Ml ([place])) 1 - 2 sprays NA PRN PRN PRN Reason: Nasal Dryness/Congestion Stop: 09/14/22 03:48 Trazodone HCl (Trazodone Hcl 50 Mg Tab) 75 mg PO HS PRN PRN Reason: Insomnia Stop: 09/14/22 11:58 Last Admin: 08/19/22 21:19 Dose: 75 mg Mental Health & Subst Abuse Tx Psychiatrist [place] [facility] [place] Psychiatrist's Date of Appointment with Psychiatrist: 08/25/22 Time of Appointment with Psychiatrist: 4:010 PM Psychiatric Appointment Comment: [address] [place] [id number] Therapist Name of Therapist: [facility] [place] Therapist's Date of Therapist Appointment: 08/26/22 Time of Therapist Appointment: 10:00 AM Therapy Appointment Comment: [place] [id number] Derrick Follower Name of Derrick Follower: [facility] [place] Phone Number for Derrick Follower: [phone] Date of Appointment with Derrick Follower: 08/25/22 Time of Appointment with Derrick Follower: 9:30 AM Case Management Appointment Comment: [place] [id number]
[2022-08-20] MEDS: FLUTICASONE/VILANTEROL 100/25MCG 14 PUFFS/INHALER INH SCH ×2 (09:16→21:27)
[2022-08-20 14:22] LABS: MDA negative; MDEA negative; MDMA (Ecstasy) Urine, Confirm negative
[2022-08-20] MEDS: cloNIDine HCL 0.1 MG TAB PO SCH (21:27)
[2022-08-20] MEDS: GABAPENTIN 600 MG TAB PO SCH (21:27)
[2022-08-20] MEDS: traZODone HCL 50 MG TAB PO PRN (21:28)
[2022-08-21] MEDS: GABAPENTIN 300 MG CAP PO SCH ×2 (08:27→13:05)
[2022-08-21] MEDS: FLUoxetine HCL 20 MG CAP PO SCH (08:27)
[2022-08-21] MEDS: ARIPiprazole 10 MG TAB PO SCH (08:27)
[2022-08-21] MEDS: CYCLOBENZAPRINE HCL 10 MG TAB PO SCH ×3 (08:27→20:53)
[2022-08-21] MEDS: PANTOprazole 40 MG TAB PO SCH (08:28)
[2022-08-21] MEDS: MELOXICAM 7.5 MG TAB PO SCH ×2 (08:28→20:54)
[2022-08-21] MEDS: FLUTICASONE/VILANTEROL 100/25MCG 14 PUFFS/INHALER INH SCH ×2 (08:28→20:47)
[2022-08-21] MEDS: PREGABALIN 50 MG CAP PO SCH ×3 (08:28→20:54)
[2022-08-21] MEDS: ACETAMINOPHEN 325 MG TAB PO PRN ×2 (12:08→18:30)
[2022-08-21] MEDS ORDERED: traZODone HCL 100 MG TAB PO PRN (15:56)
--- NOTE | 2022-08-21 15:56 | Psychiatric Progress Note ---
Date of Service August 21, 2022 Impression / Recommendations Impression The patient is a 46 year old with a history of depression and PTSD who was admitted for interrupted suicide attempt and worsening depression with ongoing SI. Diagnostically consistent with major depressive disorder with anxious distress and complex PTSD. Auditory hallucinations seem to be driven by PTSD and may also be some cluster B traits. The patient is deemed unstable and requires psychiatric hospitalization for diagnostic clarification, safety and stabilization, medication management and development of further coping skills. MNPR given significant sleep disruption and snoring 08/21/22: Depression and anxiety making steady progress toward improvement. Denies SI. More future-oriented. Still with significant insomnia. Reviewed medication treatment options, she consents to increase in trazodone dose. (1) Recurrent severe major depressive disorder with anxiety: (2) Depression with suicidal ideation: (3) Post traumatic stress disorder (PTSD): (4) Auditory hallucinations: (5) Osteoarthritis: (6) Fibromyalgia: (7) Snoring: Recommend outpatient sleep study/BIB workup as likely contributing to insomnia and may be contributing to depression. Plan 08/21/22: Increase trazodone to 100mg qhs 08/20/22: Continue with current mediations and tx plan. 08/19/22: Increase fluoxetine to 40mg qd. Stop Effexor XR. 08/18/22: Decrease Effexor XR to 37.5mg qd. 08/17/22: Increase fluoxetine to 20mg qd. Decrease to Effexor XR 75mg qd. 08/16/22: Consolidate gabapentin to 300mg 0800 and 1400 and 900mg qhs. Reduce Effexor XR to 150mg qd. Continue with fluoxetine 10mg qd. 08/15/22: The patient was admitted to the [facility] on q15 min checks (behavioral with suicide precautions) for safety. The patient will participate in group, recreational, and milieu therapies and will be offered additional individual and family sessions as clinically appropriate. -Continue prior to admission trazodone 75mg qhs, clonidine 0.4mg qhs, abilify 10mg qd -increase gabapentin to 600mg TID -Discontinue scheduled Klonopin, switch to 0.25mg daily prn for panic attacks given only has been taking for last two days so not at risk for withdrawal -Cross-taper effexor to fluoxetine, decrease Effexor to 225mg qd and start fluoxetine 10mg qd Inventory Assets Strengths: supportive relationships, willing to get treatment, trauma survivor/resilient Needs: safety and stabilization, medication adjustment, additional coping skills, increased outpatient services Suicide Risk Level Suicide Risk Level: Moderate (q15 min suicide checks) (severe depression with SI with plan prior to admission but now denies SI, feels safe in the hospital, able to safety contract and agrees to let nursing/staff know should they develop plan, intent or feel unable to remain safe. ) Suicide Risk Level Comments: Risk Factors Assessment : Yes Do You Have Access To A Gun?: No (guns locked and she doesn't have access to the holman) Health Problems: Yes Mental Health Diagnoses: Yes Previous Attempt: Yes Previous Psychiatric Hospitalization: Yes Protective Factors Assessment : Yes Responsible for Young Children: Yes Employed: No Stable Relationships: Yes Supportive Family: Yes Good Rapport with Provider: Yes Interval History Identifying Information SAI DEVLIN is a 46-year-old F who currently lives in [place] with her , 2 adult daughters, son-in-law, step-daughter, granddaughter and grandson, has a history of depression with psychosis and PTSD and osteoarthritis of the back/fibromyalgia, and was admitted on 08/15/22 02:37 on a 201 voluntary commitment for depression and SI with plan of cutting herself or overdosing on medication. Chief Complaint "I'm frustrated that I'm still struggling to sleep". Review of Systems Sleep Information Total Hours of Sleep: 5.75 Sleep Comments: Meal Information Percent Meal Consumed - Breakfast: 80 Percent Meal Consumed - Lunch: 100 Percent Meal Consumed - Dinner: 100 Subjective Subjective Patient was seen & assessed and interval progress reviewed with treatment team nursing and social work. Mood is improving but still struggling with significant sleep onset insomnia and multiple awakenings. Discussed again sleep hygiene strategies, possible BIB component and optional medication adjustments. She denies any side effects from fluoxetine or venlafaxine withdrawal nor from any of her other medications. Didn't practice gratitude journaling but will do that tonight. Looking forward to starting a Yarsanism-based trauma focused 8 week therapy group on Wednesday. Denies SI. Physical Exam Psychiatric Orientation: alert and oriented x 3 Apperance: appropriately dressed and appropriately groomed Eye Contact: good eye contact Motor Behavior: no abnormal motor movements Speech: normal rate/rhythm/volume of speech Affect: + constricted affect Mood: + depressed mood and + anxious mood Thought Process: goal directed thought process Thought Content: reality based without delusions Suicidal Thoughts: denies suicidal thoughts Homicidal Thoughts: denies homicidal thoughts Hallucinations: no auditory hallucinations and no visual hallucinations Cognition: recent memory grossly intact, remote memory grossly intact, attention grossly intact and language grossly intact Estimated Intelligence: consistent with education level Insight: + fair insight Judgement: + fair judgement Vital Signs (Past 24 Hours) Last Vital Signs Temp 36.5 C 08/21/22 09:34 Pulse 112 H 08/21/22 09:36 Resp 18 08/21/22 09:34 BP 136/84 08/21/22 09:36 Pulse Ox 99 08/21/22 09:34 O2 Del Method 08/21/22 09:34 Results & Data ([facility]) Current Inpatient Medications Current Inpatient Medications: Current Inpatient Medications Acetaminophen (Acetaminophen 325 Mg Tab) 650 mg PO Q4H PRN PRN Reason: Headache or Minor Fever Stop: 09/14/22 03:48 Last Admin: 08/21/22 12:08 Dose: 650 mg Aripiprazole (Aripiprazole 10 Mg Tab) 10 mg PO QAM [facility] Stop: 09/15/22 08:59 Last Admin: 08/21/22 08:27 Dose: 10 mg Clonazepam (Clonazepam 0.25 Mg Tab) 0.25 mg PO DAILY PRN PRN Reason: panic attack Stop: 09/14/22 12:23 Last Admin: 08/17/22 15:29 Dose: 0.25 mg Clonidine HCl (Clonidine Hcl 0.1 Mg Tab) 0.4 mg PO HS [facility]AL[facility] Stop: 09/14/22 21:59 Last Admin: 08/20/22 21:27 Dose: 0.4 mg Cyclobenzaprine HCl (Cyclobenzaprine Hcl 10 Mg Tab) 10 mg PO TID [facility]AL[facility] Stop: 09/14/22 13:59 Last Admin: 08/21/22 13:05 Dose: 10 mg Dicyclomine HCl (Dicyclomine Hcl 10 Mg Cap) 10 mg PO TID PRN PRN Reason: abdominal discomfort Stop: 09/14/22 11:58 Last Admin: 08/20/22 19:40 Dose: 10 mg Estradiol (Estradiol 0.05 Mg/24hrs Tdsy) 0.025 mg TD TuFr@1200 [facility] Stop: 09/14/22 11:59 Last Admin: 08/21/22 12:42 Dose: Not Given Fluoxetine HCl (Fluoxetine Hcl 20 Mg Cap) 40 mg PO QAM [facility] Stop: 09/19/22 08:59 Last Admin: 08/21/22 08:27 Dose: 40 mg Fluticasone/Vilanterol (Fluticasone/Vilanterol 100/25mcg 14 Puffs/Inhaler) 2 puffs INH BID [facility] Stop: 09/14/22 12:29 Last Admin: 08/21/22 08:28 Dose: 2 puffs Gabapentin (Gabapentin 600 Mg Tab) 900 mg PO HS [facility] Stop: 09/15/22 21:59 Last Admin: 08/20/22 21:27 Dose: 900 mg Gabapentin (Gabapentin 300 Mg Cap) 300 mg PO BID@0800,1400 [facility] Stop: 09/15/22 15:14 Last Admin: 08/21/22 13:05 Dose: 300 mg Hydroxyzine HCl (Hydroxyzine Hcl 25 Mg Tab) 50 mg PO TID PRN PRN Reason: as needed Stop: 09/14/22 11:58 Meloxicam (Meloxicam 7.5 Mg Tab) 7.5 mg PO BID [facility] Stop: 09/14/22 12:29 Last Admin: 08/21/22 08:28 Dose: 7.5 mg Pantoprazole Sodium (Pantoprazole 40 Mg Tab) 40 mg PO QAM [facility] Stop: 09/14/22 12:29 Last Admin: 08/21/22 08:28 Dose: 40 mg Pregabalin (Pregabalin 50 Mg Cap) 50 mg PO TID [facility] Stop: 09/14/22 13:59 Last Admin: 08/21/22 13:05 Dose: 50 mg Sodium Chloride (Sodium Chloride 0.65% Na Soln 45 Ml ([place])) 1 - 2 sprays NA PRN PRN PRN Reason: Nasal Dryness/Congestion Stop: 09/14/22 03:48 Trazodone HCl (Trazodone Hcl 50 Mg Tab) 75 mg PO HS PRN PRN Reason: Insomnia Stop: 09/14/22 11:58 Last Admin: 08/20/22 21:28 Dose: 75 mg Mental Health & Subst Abuse Tx Psychiatrist Name of Psychiatrist: [facility] [place]. Degroot Psychiatrist's Date of Appointment with Psychiatrist: 08/25/22 Time of Appointment with Psychiatrist: 4:010 PM Psychiatric Appointment Comment: [place] [id number] Therapist Name of Therapist: [facility] Therapist's Date of Therapist Appointment: 08/26/22 Time of Therapist Appointment: 10:00 AM Therapy Appointment Comment: [place] [id number] Seafood Processor Name of Seafood Processor: [facility] [place] Phone Number for Seafood Processor: [phone] Date of Appointment with Seafood Processor: 08/25/22 Time of Appointment with Seafood Processor: 9:30 AM Case Management Appointment Comment: [place] [id number]
[2022-08-21] MEDS: cloNIDine HCL 0.1 MG TAB PO SCH (20:53)
[2022-08-21] MEDS: GABAPENTIN 600 MG TAB PO SCH (20:55)
[2022-08-22] MEDS: ACETAMINOPHEN 325 MG TAB PO PRN ×2 (00:46→08:27)
[2022-08-22] MEDS: GABAPENTIN 300 MG CAP PO SCH ×2 (08:25→12:56)
[2022-08-22] MEDS: ARIPiprazole 10 MG TAB PO SCH (08:25)
[2022-08-22] MEDS: CYCLOBENZAPRINE HCL 10 MG TAB PO SCH ×2 (08:25→12:56)
[2022-08-22] MEDS: FLUoxetine HCL 20 MG CAP PO SCH (08:25)
[2022-08-22] MEDS: MELOXICAM 7.5 MG TAB PO SCH (08:26)
[2022-08-22] MEDS: PANTOprazole 40 MG TAB PO SCH (08:26)
[2022-08-22] MEDS: FLUTICASONE/VILANTEROL 100/25MCG 14 PUFFS/INHALER INH SCH (08:26)
[2022-08-22] MEDS: PREGABALIN 50 MG CAP PO SCH ×2 (08:27→12:56)
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
== END 2022-08-22 13:27 | disposition home or self-care (01) | DRG 885 ==
LOC: ED 21:02 → 3S 08-15 02:37